=== PATIENT | female | born 1980 | race Caucasian/White ===

== ENCOUNTER → 2023-09-11 13:02 | Outpatient (REF) | payer OTHER, SELFPAY | LOC: MRI 3T 13:02 | PROVIDERS: ATTENDING PHYSICIAN Nurse Practitioner Adult Health | DX: S43.92XA Sprain of unspecified parts of left shoulder girdle, initial encounter (principal) | CPT/HCPCS: 73221 ==

== ENCOUNTER → 2023-09-16 09:37 | Outpatient (REF) | payer OTHER, SELFPAY | LOC: PAVMRI 09:37 | PROVIDERS: ATTENDING PHYSICIAN Nurse Practitioner Adult Health | DX: M54.2 Cervicalgia (principal); M54.50 Low back pain, unspecified | CPT/HCPCS: 72141; 72148 ==

== ENCOUNTER 2024-07-05 16:13 | Emergency (ER) | payer OTHER, SELFPAY ==
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
[2024-07-05 16:19] VITALS: BP 139/95
[2024-07-05 16:46] LABS: % Basophils 0.3 % (0-2); % Eosinophils 0.1 % (0-6); % Immature Granulocytes 0.4 % (0-0.5); % Monocytes 4.1 % (1.7-9.3); % Neutrophils 76.1 % (42.2-75.2); Absolute Immature Granulocytes 0.1 10^3/uL (0-0.05); Absolute Lymphocytes 2.1 10^3/uL (1.2-3.4); Absolute Monocytes 0.5 10^3/uL (0.1-0.6); Absolute Neutrophils 8.5 10^3/uL (1.4-6.5); Hematocrit 41.8 % (37.0-47.0); Hemoglobin 14.4 g/dL (12.0-16.0); Mean Corp Hgb Conc. 34.4 g/dL (33.0-37.0); Mean Corpuscular Volume 90.1 fL (81.0-99.0); Mean Platelet Volume 9.7 fL (7.4-10.4); Nucleated Red Blood Cells % 0 %; Platelet Count 257 10^3/uL (130-400); Red Blood Cell Count 4.64 10^6/uL (4.20-5.40); Red Cell Dist. Width 12.5 % (11.5-14.5); White Blood Cell Count 11.1 10^3/uL (4.8-10.8)
[2024-07-05 16:57] LABS: HCG, Serum Qualitative Screen Negative
[2024-07-05 17:00] LABS: ALT (SGPT) 13 U/L (0-35); AST (SGOT) 20 U/L (14-36); Albumin 4.9 g/dl (3.5-5.0); Alkaline Phosphatase 50 U/L (38-126); Blood Urea Nitrogen 10 mg/dl (7-17); Calcium 9.5 mg/dl (8.4-10.2); Carbon Dioxide 27 mmol/L (22-30); Chloride 103 mmol/L (98-107); Glucose 93 mg/dl (70-99); Potassium 3.5 mmol/L (3.5-5.1); Sodium 140 mmol/L (135-145); Total Bilirubin 0.5 mg/dl (0.2-1.3); Total Protein 7.3 g/dl (6.3-8.2); eGFR > 60.00
[2024-07-05 17:38] LABS: Urine Albumin Negative (Neg - Trace); Urine Bilirubin Negative (Negative); Urine Character Clear (Clear); Urine Color Yellow; Urine Glucose Negative (Negative); Urine Ketone Trace (Negative); Urine Leukocyte Negative (Negative); Urine Nitrite Negative (Negative); Urine Occult Blood 4+ (Negative); Urine Urobilinogen Negative (Neg - 1+)
[2024-07-05] MEDS: TORADOL 30 MG IM (18:17)
== END 2024-07-05 19:01 | disposition home or self-care (01) ==
LOC: EMR 16:13
PROVIDERS: Registered Nurse; EMERGENCY PHYSICIAN Emergency Medicine
DX: R10.9 Unspecified abdominal pain (principal); Z87.442 Personal history of urinary calculi
CPT/HCPCS: 99284; 96372; 74176; 80053; 81003; 81015; 84703; 85025

== ENCOUNTER 2024-07-12 08:59 | Emergency (ER) | payer OTHER, SELFPAY ==
[2024-07-12 09:00] VITALS: BP 177/103
--- NOTE | 2024-07-12 09:05 | ED.GENMED ---
History of Present Illness
General
Chief Complaint: Flank Pain
Time Seen by Provider: 07/12/24 09:05
History of Present Illness
History of Present Illness:
TIME OF INITIAL ENCOUNTER: 9:10 AM
HPI: The patient comes back due to right mid back/right flank pain. She was seen here 1 week ago�at that time, 'mild fullness of the right renal pelvis and slight fullness of the right ureter noted however more distally, the right ureter is
collapsed. There is no sign of ureteral or bladder stone at that time. She was finishing her period when she was here 1 week ago. She denies shortness of breath. She tried 'a muscle relaxer' not helped at all.
EXAM:
GENERAL: Well appearing but she appears uncomfortable frequently grabbing the right flank/right side of the torso region, she is hypertensive upon arrival
HEENT: Moist oral mucosa
CARDIOVASCULAR: No murmurs, normal heart rate, regular rhythm, No chest wall tenderness
PULMONARY: No respiratory distress, breath sounds are clear and equal
ABDOMEN: Soft with no peritoneal signs, no tenderness, mild right CVA tenderness
NEUROLOGIC: Excellent strength all extremities, no coordination deficits
PSYCHIATRIC: Appropriate mental status, normal insight and judgement
EXTREMITIES: Nontender, no edema, moves all extremities equally
SKIN: No rash, no lesions no evidence of zoster
NUMBER AND COMPLEXITY OF PROBLEMS ADDRESSED AT THE ENCOUNTER
� Chronic conditions affecting care: Approximately 14 years ago, the patient had a kidney stone
� Acute Exacerbation and/or Progression of Chronic Illness: This is an acute but recurring problem
� Differential Diagnosis includes: Muscle strain, oblique muscle etiology, renal infarct, ureteral stone not seen on last visit
AMOUNT AND/OR COMPLEXITY OF DATA TO BE REVIEWED AND ANALYZED
� I performed an independent evaluation of and my interpretation is:
EKG:
CT: CT imaging personally reviewed and I agree with radiologist interpretation
X-rays:
Laboratory Studies: CBC, chemistries and urinalysis are unremarkable
Other:
� Review of other/old records: I reviewed CT�see HPI above, 1 week ago, white count was 11.1, 4+ blood was noted, she was given Toradol 1 week ago
� Clinical information was obtained by an independent historian: I spoke to her at bedside
� Prescriptions/Medications Considered but not given:
� Further testing considered but not performed:
RISK OF COMPLICATIONS AND/OR MORBIDITY OR MORTALITY OF PATIENT MANAGEMENT
� Social determinants of health affecting care: Lives at home
� Discussion with other providers:
� Escalation of care including admission/observation vs risk of discharge considered: Will try IV Toradol. Concerning narcotic analgesia as the pain is persisting. Will CT this time with IV contrast.
ANY OTHER UPDATES:
11:30 AM: The patient reports only minimal improvement after Toradol. She remains to appear somewhat uncomfortable but no clear indication for admission to the hospital. Will continue steroids to help treat the allergic reaction from the CT dye
and also tried it to help decrease any potential inflammation from the abdominal/flank wall. Will add narcotic analgesia.
Phy Exam
Physical Exam
Physical Exam:
See HPI
Course
Orders/Labs/Results
Orders:
Orders
07/12/24 09:10
Test Result ONCE
07/12/24 09:17
CT Abd/pelvis W Iv Cont Urgent
Comment:
Reason For Exam: intractable worsening R flank pain
Ketorolac [Toradol] 15 mg IV NOW STA
07/12/24 09:27
Complete Blood Count/With Diff Urgent
Comprehensive Metabolic Panel Urgent
HCG, Serum Qualitative Screen Urgent
Urinalysis Reflex To Culture Urgent
Date Specimen was Collected: 07/12/24
Time Specimen was Collected: 09:21
07/12/24 10:44
Diphenhydramine [Benadryl] 25 mg IV NOW STA
MethylPREDNISolone PF [Solu-Medrol Pf] 125 mg IV NOW STA
Abnormal Lab Results
07/12/24
09:27
MCH 31.6 H pg
(27.0-31.0)
Glucose 109 H mg/dl
(70-99)
07/12/24 09:27
07/12/24 09:27
Vital Signs
Initial and Last Documented VS:
Initial Vital Signs
Temp Pulse Resp BP Pulse Ox
37.2 C 82 18 177/103 97
07/12/24 09:00 07/12/24 09:00 07/12/24 09:00 07/12/24 09:00 07/12/24 09:00
Last Documented Vital Signs
Temp Pulse Resp BP Pulse Ox
37.2 C 71 15 127/86 98
07/12/24 09:00 07/12/24 11:01 07/12/24 11:01 07/12/24 11:01 07/12/24 11:01
*Critical Care Note
Total Time (30-74mins, 75-104mins- exclusive of procedures): Not Applicable
ED Attending Note
-
Portions of this chart may have been created with voice recognition software.� Occasional wrong word or��sound alike� substitutions may have occurred due to the inherent limitations of voice recognition software.
Discharge Plan
Departure
Patient Disposition: Home (Routine Discharge)
Date of Disposition: 07/12/24
Time of Disposition: 11:26
Patient with high blood pressure during this ER visit?: Yes
Discharge Problem:
Abdominal wall pain in right flank
Prescriptions:
New
oxycodone-acetaminophen [Percocet] 5-325 mg tablet
1 - 2 tab PO Q6HPRN PRN (Reason: pain) Qty: 14 0RF
prednisone 50 mg tablet
50 mg PO DAILY Qty: 4 0RF
No Action
methocarbamol 750 mg tablet
750 - 1,500 mg PO Q8H Qty: 20 0RF
ibuprofen 600 mg tablet
600 mg PO Q6H Qty: 10 0RF
Referrals:
Holly Tafoya DO [Family Provider] -
Activity Restrictions/Additional Instructions:
The cause of your symptoms is unclear. Your white blood cell count is normal, liver, kidney, electrolyte blood test are all normal. Urinalysis is completely normal with no sign of infection or blood. The CAT scan of the abdomen pelvis with IV
contrast shows no acute abnormality. A normal appendix was seen. We can try steroids for the next few days to help decrease inflammation�next dose tomorrow since we gave you a dose here. I recommend not taking ibuprofen along with the steroids as
they can be irritating to the stomach when taken together. I did send a prescription for Percocet to your pharmacy�I recommend using something like MiraLAX to prevent constipation if you take Percocet.
Interventions
Interventions:
*Risk Screen - Suicide Last Done: 07/12/24 09:00
*General Assessment Last Done: 07/12/24 09:00
*Neglect/Abuse Screening Last Done: 07/12/24 09:00
*ED COVID-19 Vaccine History Last Done: 07/12/24 09:30
AG-Uoqngr-Dkwafojryw Assessment Last Done: 07/12/24 09:30
ED-Female Genitourinary Assessment Last Done: 07/12/24 09:30
Discharge Date and Time
Print Language: MOZAMBICAN
[2024-07-12 09:25] VITALS: BMI 27.9
[2024-07-12] MEDS: TORADOL 15 MG IV (09:27)
[2024-07-12 09:29] VITALS: BP 125/74
[2024-07-12 09:41] LABS: % Basophils 0.1 % (0-2); % Eosinophils 0.1 % (0-6); % Immature Granulocytes 0.1 % (0-0.5); % Lymphocytes 22.2 % (20.5-51.1); % Monocytes 5.9 % (1.7-9.3); % Neutrophils 71.6 % (42.2-75.2); Absolute Lymphocytes 1.8 10^3/uL (1.2-3.4); Absolute Monocytes 0.5 10^3/uL (0.1-0.6); Absolute Neutrophils 5.7 10^3/uL (1.4-6.5); Hematocrit 42.7 % (37.0-47.0); Hemoglobin 14.8 g/dL (12.0-16.0); Mean Corp Hgb Conc. 34.7 g/dL (33.0-37.0); Mean Corpuscular Hgb 31.6 pg (27.0-31.0); Mean Corpuscular Volume 91.2 fL (81.0-99.0); Nucleated Red Blood Cells % 0 %; Platelet Count 268 10^3/uL (130-400); Red Blood Cell Count 4.68 10^6/uL (4.20-5.40); Red Cell Dist. Width 12.5 % (11.5-14.5)
[2024-07-12 09:55] LABS: HCG, Serum Qualitative Screen Negative
[2024-07-12 09:59] LABS: ALT (SGPT) 13 U/L (0-35); AST (SGOT) 19 U/L (14-36); Albumin 4.7 g/dl (3.5-5.0); Alkaline Phosphatase 50 U/L (38-126); Blood Urea Nitrogen 15 mg/dl (7-17); Calcium 9.6 mg/dl (8.4-10.2); Carbon Dioxide 26 mmol/L (22-30); Chloride 106 mmol/L (98-107); Estimated Creatinine Clearance 116 ml/min; Glucose 109 mg/dl (70-99); Sodium 140 mmol/L (135-145); Total Bilirubin 0.4 mg/dl (0.2-1.3); eGFR > 60.00
[2024-07-12 10:00] VITALS: BP 117/72
[2024-07-12 10:00] LABS: Urine Albumin Negative (Neg - Trace); Urine Bilirubin Negative (Negative); Urine Character Clear (Clear); Urine Color Yellow; Urine Glucose Negative (Negative); Urine Ketone Negative (Negative); Urine Leukocyte Negative (Negative); Urine Nitrite Negative (Negative); Urine Occult Blood Negative (Negative); Urine Urobilinogen Negative (Neg - 1+)
[2024-07-12] MEDS: BENADRYL 25 MG IV (10:48)
[2024-07-12] MEDS: SOLU-MEDROL PF 125 MG IV (10:48)
[2024-07-12 11:01] VITALS: BP 127/86
== END 2024-07-12 12:11 | disposition home or self-care (01) ==
LOC: EMR 08:59
PROVIDERS: EMERGENCY PHYSICIAN Emergency Medicine; FAMILY PHYSICIAN Internal Medicine Hematology & Oncology
DX: R10.9 Unspecified abdominal pain (principal); M54.9 Dorsalgia, unspecified; Z87.442 Personal history of urinary calculi
CPT/HCPCS: 96374; 96375; 99284; 74177; 80053; 81003; 84703; 85025; Q9967